=== PATIENT | female | born 1940 | race Caucasian/White ===

== ENCOUNTER 2020-01-15 10:14 | Emergency (ER) | payer MEDICARE ==
[~2020-01-15] VITALS: Ht 157.5 cm; Wt 52.0 kg
[2020-01-15 10:17] VITALS: BP 121/63
--- NOTE | 2020-01-15 11:04 | NUR ---
TASK RN: ERP DR. HOLT ATTEMPTED TO PLACE G TUBE IN ROOM W/O SUCCESS. PT TYSON WELL. IR TO BE CONSULTED FOR PLACEMENT OF G TUBE.
--- NOTE | 2020-01-15 11:29 | NUR ---
PT TO IR.
[2020-01-15] MEDS ORDERED: VISIPAQUE 270 MG/ML, 50ML BOTTLE ONE (11:30)
[2020-01-15] MEDS ORDERED: LIDOCAINE 1%, 10ML ONE (11:45)
--- NOTE | 2020-01-15 12:05 | NUR ---
PT BACK FROM IR.
--- NOTE | 2020-01-15 13:16 | NUR ---
SYRINGES FOR NEW GTUBE PROVIDED TO PT.
== END 2020-01-15 13:18 | disposition home or self-care (01) ==
LOC: ED 12:18
DX: K94.23 Gastrostomy malfunction (principal); F17.200 Nicotine dependence, unspecified, uncomplicated
CPT/HCPCS: 49450; 75984; 99285; C1769; J3490; Q9966